=== PATIENT | male | born 1965 | race Caucasian/White ===

== ENCOUNTER → 2017-05-30 | Outpatient (CLI) | payer BC ==
[~2017-05-30] MED LIST: REGADENOSON 0.4 MG/5 ML SYRINGE IV ONE
--- NOTE | 2017-05-30 10:47 | NM ---
EXAMINATION TYPE: NM stress lexiscan cardiolite DATE OF EXAM: 05/30/2017 COMPARISON: NONE HISTORY: Chest pain per order. History of tobacco use, hypertension, and family history of heart leola ck in mother. TECHNIQUE: After the intravenous administration of 9.74 mCi Tc 99m Sestamibi - Cardiolite resting SP ECT images acquired 45 minutes post injection. The patient received 0.4mg Lexiscan, 26.8 mCi Tc 99m Sestamibi - Stress images obtained [address] injection FINDINGS: Review of stress and rest SPECT images demonstrates no distinct perfusion abnormality. Gated analysi s shows normal wall motion with an estimated left ventricular ejection fraction of 68 %. IMPRESSION: No scintigraphic evidence for reversible ischemia.
--- NOTE | 2017-05-30 12:15 | P.STRESS ---
- Stress Test Note Stress Test Results/Findings: Exam Performed: NM stress lexiscan cardiolite Exam Date: 05/30/17 Reason for Exam: CP Height: 5 ft 10 in Weight: 140.614 kg Protocol: Stage: Duration of Exercise: Resting Heart Rate: 90 Resting Blood Pressure: 130/93 Maximum Achieved Heart Rate: 111 Maximum Achieved Blood Pressure: 136/68 85% PMHR: 100% PMHR: METS: Technologist Comment: Stress Test Results/Findings: Lexiscan Cardiolite study was performed. Patient was given Lexiscan injection over the period of [address] segment depression suggestive of ischemia was noted the results of the nuclear study will follow.
== END ==
LOC: RADNMMAIN 07:51
PROVIDERS: ATTEND Family Medicine
DX: R07.9 Chest pain, unspecified (principal)
CPT/HCPCS: 93017; 78452; A9500; J2785

== ENCOUNTER → 2017-11-08 | Outpatient (CLI) | payer BC ==
--- NOTE | 2017-11-08 10:59 | XR ---
EXAMINATION TYPE: XR foot complete LT DATE OF EXAM: 11/08/2017 CLINICAL HISTORY: pain TECHNIQUE: Frontal, lateral and oblique images of the left foot are obtained. COMPARISON: None. FINDINGS: Mildly displaced and angulated fracture at the base of the proximal phalanx of left fourth digit. Displacement is noted at 1.5 mm. No evidence for intra-articular extension. No additional frac tures identified. Mild soft tissue swelling seen. IMPRESSION: Fracture as described. ICD 10 closed FRACTURE, INITIAL EVALUATION
== END | disposition home or self-care (01) ==
LOC: RADXRMAIN 10:30
PROVIDERS: ATTEND Family Medicine
DX: S92.512A Displaced fracture of proximal phalanx of left lesser toe(s), initial encounter for closed fracture (principal)

== ENCOUNTER 2018-02-19 10:11 | Day surgery (SDC) | payer BC ==
[2018-02-14 15:46] VITALS: BMI 46.6
[~2018-02-19 10:11] MED LIST changes: +LACTATED RINGERS 1,000 ML IV SCH; +LIDOCAINE 1% 20 ML VIAL (10MG/ML) FOR IV START INTRADERMA PRN; -REGADENOSON 0.4 MG/5 ML SYRINGE IV ONE
[2018-02-19 10:52] VITALS: TEMP 97.1
[2018-02-19] MEDS ORDERED: LIDOCAINE 1% INJ 10MG/ML (20 ML MDV) ONE (11:56)
[2018-02-19] MEDS ORDERED: PROPOFOL 10 MG/ML 20 ML VIAL IV ONE (11:56)
--- NOTE | 2018-02-19 12:03 | P.GSHP ---
History of Present Illness H&P Date: 02/19/18 Chief Complaint: GI bleed This is a 52-year-old male referred from Dr. Edwardo Quiñones. Patient's today for colonoscopy. He's had issues with GI bleed. Past Medical History Past Medical History: Hypertension History of Any Multi-Drug Resistant Organisms: None Reported Past Surgical History: Cholecystectomy, Orthopedic Surgery, Tonsillectomy Additional Past Surgical History / Comment(s): LT KNEE SCOPE Past Anesthesia/Blood Transfusion Reactions: Postoperative Nausea & Vomiting ( PONV) Smoking Status: Former smoker - Past Family History Mother Family Medical History: No Reported History Medications and Allergies Home Medications Medication Instructions Recorded Confirmed Type Dextroamphetamine/Amphetamine 30 mg PO DAILY 02/14/18 02/19/18 History [Adderall] Lisinopril 40 mg PO DAILY 02/14/18 02/19/18 History Allergies Allergy/AdvReac Type Severity Reaction Status Date / Time No Known Allergies Allergy Unverified 02/19/18 10:47 Surgical - Exam Vital Signs Temp Pulse Resp BP Pulse Ox 97.1 F L 110 H 20 126/87 96 02/19/18 10:51 02/19/18 10:51 02/19/18 10:51 02/19/18 10:51 02/19/18 10:51 - General well developed, no distress - Eyes PERRL - ENT normal pinna - Neck no masses - Respiratory normal expansion - Cardiovascular Rhythm: regular - Abdomen Abdomen: soft, non tender Assessment and Plan Assessment: GI bleed. We'll perform colonoscopy.
[2018-02-19 12:28] VITALS: RESP 16
[2018-02-19 12:49] VITALS: BP 109/72; PULSE 105
--- NOTE | 2018-02-20 12:06 | P.OP ---
Date of Procedure: 02/19/18 Preoperative Diagnosis: GI bleed Postoperative Diagnosis: Rectal polyp Diverticulosis Right colon polyp Procedure(s) Performed: Colonoscopy Anesthesia: MAC Surgeon: Kit Davis Pathology: other (Rectal polyp) Condition: stable Disposition: PACU Description of Procedure: The patient's placed on the endoscopy table lateral position. He received IV sedation. Digital rectal exam was performed which revealed a few internal hemorrhoids. The flexible colonoscope was then placed patient anus and passed throughout the entire colon. The ileocecal valve was visualized. The cecum appeared normal. In the right colon there was a polyp seen this removed with the snare. Scope was withdrawn remainder the ascending colon transverse colon appeared normal. In the descending and sigmoid colon there is some mild diverticular changes. The scope was then brought back the rectum and another polyp was seen this removed with the cold forcep. Scope was withdrawn through the anus and internal hemorrhoids were noted.
--- NOTE | 2018-02-27 20:51 | CDI ---
Outpatient Documentation Clarification Form Date: 02/27/18 CDS/Assistant Media Buyer Name: Gayla Farias Phone: If any questions, call Melinda Morgan Dist[employer] Laborer at [phone] Patient Name: Hay Sutton Admit Date: 02/19/18 Discharge Date: 02/19/18 ATTENTION: The [facility] Coding Staff appreciate your assistance in clarifying documentation. Please respond to the clarification below the line at the bottom and electronically sign. The [facility] Coding staff will review the response and follow-up if needed. Please note: Queries are made part of the Legal Health Record. If you have any questions, please contact the Distillery Laborer. Dear Dr. Kit Davis, What is the cause of the GI bleed? Thank you for your kind consideration. Unsure of the source of GI bleed. TIAD
== END 2018-02-19 13:11 | disposition home or self-care (01) ==
LOC: ORWHC2ENDO 10:11
PROVIDERS: ATTEND Surgery
DX: K92.2 Gastrointestinal hemorrhage, unspecified (principal); D12.8 Benign neoplasm of rectum; K63.5 Polyp of colon; K57.30 Diverticulosis of large intestine without perforation or abscess without bleeding; K64.8 Other hemorrhoids; I10 Essential (primary) hypertension; Z79.899 Other long term (current) drug therapy; Z90.49 Acquired absence of other specified parts of digestive tract; Z86.73 Personal history of transient ischemic attack (TIA), and cerebral infarction without residual deficits; Z87.891 Personal history of nicotine dependence
CPT/HCPCS: 88305; 45380; 45385; J2001; J2704

== ENCOUNTER 2022-05-24 07:21 | Day surgery (SDC) | payer BC ==
[2022-05-23 11:41] VITALS: BMI 36.6
[2022-05-24] MEDS ORDERED: LIDOCAINE 1% (10MG/ML) FOR IV START INTRADERMA PRN (07:32)
[2022-05-24] MEDS ORDERED: LACTATED RINGERS 1,000 ML IV SCH ×2 (07:32)
[2022-05-24 07:50] VITALS: TEMP 97
[2022-05-24] MEDS ORDERED: PROPOFOL 10 MG/ML 20 ML VIAL IV ONE (08:11)
--- NOTE | 2022-05-24 08:12 | P.GSHP ---
History of Present Illness H&P Date: 05/24/22 Chief Complaint: History of colon polyps This is a 57-year-old male presents today for colonoscopy. Patient is. History of colon polyps Past Medical History Past Medical History: Hypertension Additional Past Medical History / Comment(s): Hx. of HTN, cysts on kidneys, lungs & Liver- all benign. History of Any Multi-Drug Resistant Organisms: None Reported Past Surgical History: Cholecystectomy, Orthopedic Surgery, Tonsillectomy Additional Past Surgical History / Comment(s): LT KNEE SCOPE, colonoscopy. Past Anesthesia/Blood Transfusion Reactions: No Reported Reaction Smoking Status: Former smoker - Past Family History Mother Family Medical History: No Reported History Medications and Allergies Home Medications Medication Instructions Recorded Confirmed Type Nebivolol [Bystolic] 5 mg PO DAILY 05/23/22 05/23/22 History Allergies Allergy/AdvReac Type Severity Reaction Status Date / Time No Known Allergies Allergy Verified 05/24/22 07:40 Surgical - Exam Vital Signs Temp Pulse Resp BP Pulse Ox 97.0 F L 73 20 107/70 99 05/24/22 07:49 05/24/22 07:49 05/24/22 07:49 05/24/22 07:49 05/24/22 07:49 - General well developed, well nourished, no distress - Eyes PERRL - ENT normal pinna - Neck no masses - Respiratory normal expansion - Cardiovascular Rhythm: regular - Abdomen Abdomen: soft, non tender Assessment and Plan Assessment: History of colon polyps. We'll perform colonoscopy
--- NOTE | 2022-05-24 08:31 | P.OP ---
Date of Procedure: 05/24/22 Preoperative Diagnosis: History of colon polyps Postoperative Diagnosis: Normal colonoscopy Procedure(s) Performed: Colonoscopy Anesthesia: MAC Surgeon: Kit Davis Pathology: none sent Condition: stable Disposition: PACU Description of Procedure: Patient's placed on the endoscopy table in the lateral position. He received IV sedation. Digital rectal exam was performed which revealed no abnormality. The flexible colonoscope was then placed patient anus and passed throughout the entire colon. The ileocecal valve was visualized. The cecum, ascending and transverse colon appeared normal. The descending and sigmoid colon appeared normal. Scope was then brought back the rectum this appeared normal. Scope withdrawn for patient.
[2022-05-24] MEDS ORDERED: IV FLUID CONTINUATION 750 ML IV ONE (08:35)
[2022-05-24] MEDS ORDERED: LACTATED RINGERS 1,000 ML IV ONE (08:35)
[2022-05-24 08:40] VITALS: RESP 16
[2022-05-24 09:02] VITALS: BP 103/72; PULSE 75
== END 2022-05-24 09:20 | disposition home or self-care (01) ==
LOC: ORWHC2ENDO 07:21
PROVIDERS: ATTEND Surgery
DX: Z86.010 Personal history of colon polyps (principal); I10 Essential (primary) hypertension; Z90.49 Acquired absence of other specified parts of digestive tract; Z87.891 Personal history of nicotine dependence; Z79.899 Other long term (current) drug therapy
CPT/HCPCS: 45378; J2704